=== PATIENT | female | born 1985 | race African-American/Black ===

== ENCOUNTER 2018-12-11 02:01 | Emergency (ER) | payer OTHER ==
[~2018-12-11] VITALS: Ht 149.9 cm; Wt 53.5 kg
--- NOTE | 2018-12-11 02:10 | NUR ---
Pt brought to ED via [facility] requesting a medical clearance for placement in group home. Pt reports last THC along time ago and drank 3 shots tonight but rarely drinks. Pt c/o some lower abd pain.
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
[2018-12-11 03:15] LABS: HCG,QUALITATIVE URINE NEGATIVE (NEGATIVE)
[2018-12-11 03:18] LABS: AMPHETAMINE SCREEN, URINE NEGATIVE (NEGATIVE); BARBITURATE SCREEN URINE NEGATIVE (NEGATIVE); BENZODIAZEPINES SCREEN URINE NEGATIVE (NEGATIVE); CANNABINOID SCREEN, URINE POSITIVE (NEGATIVE); CLARITY,URINE CLEAR; COCAINE SCREEN URINE NEGATIVE (NEGATIVE); COLOR,URINE YELLOW; METHADONE STAT NEGATIVE (NEGATIVE); METHAMPHETAMINE SCREEN URINE S NEGATIVE (NEGATIVE); OPIATE SCREEN URINE NEGATIVE (NEGATIVE); OXYCODONE STAT NEGATIVE (NEGATIVE); PROPOXYPHENE STAT NEGATIVE (NEGATIVE); TRICYCLIC ANTIDEPRESSANTS SCRE NEGATIVE (NEGATIVE)
[2018-12-11 03:19] LABS: BACTERIA,URINE FEW /HPF; BILIRUBIN,URINE NEGATIVE (NEGATIVE); GLUCOSE, URINE (UA) NEGATIVE (NEGATIVE); KETONES,URINE NEGATIVE (NEGATIVE); LEUKOCYTE ESTERASE ,URINE 1+ (NEGATIVE); NITRITE,URINE NEGATIVE (NEGATIVE); PROTEIN,URINE 1+ (NEGATIVE); UROBILINOGEN,URINE 0.2 MG/DL (NORMAL)
[2018-12-11 03:21] LABS: ALANINE AMINOTRANSFERASE 21 U/L (0-55); ALBUMIN 4.8 GM/DL (3.2-4.5); ALKALINE PHOSPHATASE 84 U/L (40-136); BILIRUBIN,TOTAL 0.2 MG/DL (0.1-1.0); BUN/CREATININE RATIO 13; CALCIUM 9.2 MG/DL (8.5-10.1); CARBON DIOXIDE 21 MMOL/L (21-32); CHLORIDE 103 MMOL/L (98-107); CREATININE SERUM 0.78 MG/DL (0.60-1.30); GFR ESTIMATED > 60; GLUCOSE 94 MG/DL (70-105); POTASSIUM 3.6 MMOL/L (3.6-5.0); SODIUM 142 MMOL/L (135-145); TOTAL PROTEIN 7.7 GM/DL (6.4-8.2)
[2018-12-11 03:23] LABS: HEMATOCRIT 46 % (35-52); HEMOGLOBIN 15.6 G/DL (11.5-16.0); LYMPHOCYTES % (AUTO) 21 % (12-44); MEAN CORPUSCULAR HEMOGLOBIN 31 PG (25-34); MEAN CORPUSCULAR HGB CONC 34 G/DL (32-36); MEAN CORPUSCULAR VOLUME 93 FL (80-99); MEAN PLATELET VOLUME 12.1 FL (7.4-10.4); NEUTROPHILS % (AUTO) 75 % (42-75); PLATELET COUNT 173 10^3/uL (130-400); RED CELL DISTRIBUTION WIDTH 12.8 % (10.0-14.5); WHITE BLOOD COUNT 14.3 10^3/uL (4.3-11.0)
[2018-12-11 03:24] LABS: BAND NEUTROPHILS 6 %; BASOPHILS # (AUTO) 0.1 10^3/uL (0.0-0.1); BASOPHILS % (AUTO) 0 % (0-10); BASOPHILS % (MANUAL) 0 %; EOSINOPHILS % (AUTO) 0 % (0-10); EOSINOPHILS % (MANUAL) 1 %; LYMPHOCYTES % (MANUAL) 18 %; MONOCYTES # (AUTO) 0.5 X 10^3 (0.0-1.0); MONOCYTES % (AUTO) 4 % (0-12); MONOCYTES % (MANUAL) 4 %; NEUTROPHILS # (AUTO) 10.6 X 10^3 (1.8-7.8); NEUTROPHILS % (MANUAL) 71 %
[2018-12-11 03:25] LABS: RBC MORPH NORMAL
[2018-12-11] MEDS ORDERED: KETOROLAC 30 MG/ML VIAL IVP ONE (03:45)
[2018-12-11] MEDS ORDERED: CATHETER FLUSH 10 ML SYR IV PRN (03:45)
[2018-12-11] MEDS ORDERED: NS 100 ML (IVPB) BAG IV ONE (03:45)
[2018-12-11] MEDS ORDERED: IOHEXOL 350 MG/ML 100 ML (OMNIPAQUE 350) VIAL IV ONE (03:45)
[2018-12-11] MEDS ORDERED: HOLD METFORMIN - RECEIVED CONTRAST 20 ML VIAL IV SCH (03:45)
--- NOTE | 2018-12-11 03:52 | NUR ---
20 ga SL placed to [facility] to prepare for CT scan.
[2018-12-11] MEDS ORDERED: CEFU250T80 PO (04:58)
[2018-12-11] MEDS ORDERED: CEFDINIR 300 MG (OMNICEF) CAP PO ONE (05:00)
[2018-12-11 05:04] VITALS: BP 121/70
--- NOTE | 2018-12-11 05:04 | NUR ---
Pt released in custody of [facility].
--- NOTE | 2018-12-11 06:37 | Diagnostic Imaging Report ---
PROCEDURE: CT abdomen and pelvis with contrast. TECHNIQUE: Multiple contiguous axial images were obtained through the chest, abdomen and pelvis after administration of intravenous contrast. Auto Exposure Controls were utilized during the CT exam to meet ALARA standards for radiation dose reduction. INDICATION: Pelvic and abdominal pain. CORRELATION STUDY: None FINDINGS: CT CHEST: Heart size normal. Thoracic aorta unremarkable. Calcified granulomas within the mediastinum are present. The lung marley are clear. No infiltrate. Calcified granuloma anterior aspect right upper lobe. No pleural effusion or pneumothorax. CT ABDOMEN and PELVIS: Likely small amount of fatty infiltration along the falciform ligament of the liver. Liver otherwise unremarkable. Gallbladder, spleen, pancreas and adrenal glands are unremarkable. Abdominal aorta normal in contour. Gastrointestinal tract demonstrates no obstruction or inflammation. Mild severity fecal retention. No findings to suggest appendicitis. No free air. In the pelvis, approximately 4.4 cm right adnexal cystic mass is present. Trace amount of pelvic fluid. Uterus and left adnexa unremarkable. Urinary bladder unremarkable. There is incidental note made of a likely mixing contrast and blood within the venous system of the pelvis and low IVC. Visualized osseous structures are unremarkable. IMPRESSION: CT CHEST: 1. Negative for acute abnormality of the chest. CT ABDOMEN and PELVIS: 1. Right adnexal cyst may be physiologic; this fairly prominent. If further assessment is desired, consideration for pelvic ultrasound imaging would be recommended. A preliminary report was provided by [employer]. Dictated by: Dictated on workstation # [id number]
== END 2018-12-11 05:04 ==
LOC: ER FS 02:04
DX: N39.0 Urinary tract infection, site not specified (principal); N83.201 Unspecified ovarian cyst, right side; F12.10 Cannabis abuse, uncomplicated; F17.210 Nicotine dependence, cigarettes, uncomplicated
CPT/HCPCS: 36415; 74177; 80053; 80306; 80320; 81000; 84703; 85007; 85027; 87077; 87088; 87491; 87591

== ENCOUNTER 2019-03-30 00:12 | Emergency (ER) | payer SELFPAY ==
[~2019-03-30] VITALS: Ht 149.9 cm; Wt 53.5 kg
[~2019-03-30 00:12] MED LIST: CEFU250T80 PO
[2019-03-30] MEDS ORDERED: LACTATED RINGERS 1,000 ML IV ONE (00:14)
[2019-03-30] MEDS ORDERED: SUCCINYLCHOLINE INJ 100 MG/5 ML SYR INJ ONE ×2 (00:16→02:00)
[2019-03-30] MEDS ORDERED: MIDAZOLAM 5 MG/5 ML (VERSED) VIAL IJ ONE (00:16)
[2019-03-30] MEDS ORDERED: ROCURONIUM 10 MG/ML 5 ML SYRINGE IV ONE ×2 (00:16→02:00)
[2019-03-30] MEDS ORDERED: TETANUS,DIPTH,PERTUSS P/F (BOOSTRIX) 0.5 ML VIAL IM ONE (00:30)
[2019-03-30 00:32] LABS: BASOPHILS # (AUTO) 0.1 10^3/uL (0.0-0.1); BASOPHILS % (AUTO) 0 % (0-10); EOSINOPHILS # (AUTO) 0.1 10^3/uL (0.0-0.3); EOSINOPHILS % (AUTO) 1 % (0-10); HEMATOCRIT 45 % (35-52); HEMOGLOBIN 15.5 G/DL (11.5-16.0); LYMPHOCYTES # (AUTO) 3.8 X 10^3 (1.0-4.0); LYMPHOCYTES % (AUTO) 27 % (12-44); MEAN CORPUSCULAR HEMOGLOBIN 31 PG (25-34); MEAN CORPUSCULAR HGB CONC 35 G/DL (32-36); MEAN CORPUSCULAR VOLUME 91 FL (80-99); MEAN PLATELET VOLUME 11.9 FL (7.4-10.4); MONOCYTES # (AUTO) 0.7 X 10^3 (0.0-1.0); MONOCYTES % (AUTO) 5 % (0-12); NEUTROPHILS # (AUTO) 9.3 X 10^3 (1.8-7.8); NEUTROPHILS % (AUTO) 66 % (42-75); PLATELET COUNT 176 10^3/uL (130-400); RED CELL DISTRIBUTION WIDTH 13.7 % (10.0-14.5)
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
[2019-03-30 01:01] LABS: ALANINE AMINOTRANSFERASE 20 U/L (0-55); ALBUMIN 4.5 GM/DL (3.2-4.5); ALKALINE PHOSPHATASE 68 U/L (40-136); AMYLASE 150 U/L (25-125); BILIRUBIN,TOTAL 0.3 MG/DL (0.1-1.0); BUN/CREATININE RATIO 18; CALCIUM 8.7 MG/DL (8.5-10.1); CARBON DIOXIDE 14 MMOL/L (21-32); CHLORIDE 115 MMOL/L (98-107); CREATINE KINASE 265 U/L (29-168); GFR ESTIMATED > 60; GLUCOSE 87 MG/DL (70-105); LIPASE 414 U/L (8-78); MAGNESIUM 2.2 MG/DL (1.6-2.4); POTASSIUM 3.9 MMOL/L (3.6-5.0); SODIUM 147 MMOL/L (135-145); TOTAL PROTEIN 7.5 GM/DL (6.4-8.2)
[2019-03-30 01:08] LABS: CREATINE KINASE MB 2.9 NG/ML (<6.6)
[2019-03-30] MEDS ORDERED: HOLD METFORMIN - RECEIVED CONTRAST 20 ML VIAL IV SCH (01:15)
[2019-03-30] MEDS ORDERED: IOHEXOL 350 MG/ML 100 ML (OMNIPAQUE 350) VIAL IV ONE (01:15)
[2019-03-30] MEDS ORDERED: NS 100 ML (IVPB) BAG IV ONE (01:15)
[2019-03-30] MEDS ORDERED: NS IV 1000 ML 1,000 ML IV ONE (01:20)
[2019-03-30 01:21] LABS: ACETAMINOPHEN < 10 UG/ML (10-30)
[2019-03-30 01:22] LABS: BILIRUBIN,URINE NEGATIVE (NEGATIVE); CLARITY,URINE CLEAR; COLOR,URINE YELLOW; GLUCOSE, URINE (UA) NEGATIVE (NEGATIVE); KETONES,URINE NEGATIVE (NEGATIVE); LEUKOCYTE ESTERASE ,URINE NEGATIVE (NEGATIVE); NITRITE,URINE NEGATIVE (NEGATIVE); PROTEIN,URINE NEGATIVE (NEGATIVE)
--- NOTE | 2019-03-30 01:22 | Anesthesia-Procedure Note ---
Procedures/Interventions Procedure Start/Stop/Diagnosis Date of Procedure: Mar 30, 2019 Start Time: 00:45 Referring Physician: Charan Preprocedural Diagnosis: unresponsive/head trauma Brief History See ER provider notes for history. Called to ER to intubate patient after head trauma. Upon patients arrival back to ER room, monitors on and functional. C- collar in place. Versed 2MG IV given for placement on NGT prior to intubation due to unknown NPO status and to reduce risk of aspiration. PPV via ambu bag w ith 15L O2. Succinylcholine 80mg IV given. One attempt with poor view by SRNA. One attempt by AGUSTIN, 7.5 ETT placed with ease. +ETCO2. BBS. Report to ER staff. Pt in stable condition upon our exit. Stop Time: 01:08 Intubation RSI: Yes 100% pre-Ox, [id number]: Yes Intubation Method: orotracheal Videoscope used: Yes (mccgrath x ) Grade View: 1 Medications: Succinylcholine (80), Versed (2) Mask Ventilation: positive Positive End Tide CO2: Yes Breath Sounds after Intubation: bilateral-equal ETT Securred @ (cm): 20 Intubated with ease: Yes Intubation Complications: no complications AISLINN WOOD CRNA Mar 30, 2019 01:22 POS
[2019-03-30 01:33] LABS: AMPHETAMINE SCREEN, URINE NEGATIVE (NEGATIVE); BACTERIA,URINE TRACE /HPF; BARBITURATE SCREEN URINE NEGATIVE (NEGATIVE); BENZODIAZEPINES SCREEN URINE NEGATIVE (NEGATIVE); CANNABINOID SCREEN, URINE NEGATIVE (NEGATIVE); COCAINE SCREEN URINE NEGATIVE (NEGATIVE); METHADONE STAT NEGATIVE (NEGATIVE); METHAMPHETAMINE SCREEN URINE S NEGATIVE (NEGATIVE); OPIATE SCREEN URINE NEGATIVE (NEGATIVE); OXYCODONE STAT NEGATIVE (NEGATIVE); PROPOXYPHENE STAT NEGATIVE (NEGATIVE); SQUAMOUS EPITHELIAL CELL,UR RARE /HPF; TRICYCLIC ANTIDEPRESSANTS SCRE NEGATIVE (NEGATIVE)
[2019-03-30 01:50] LABS: ABG BASE EXCESS -8.2 MMOL/L (-2.5-2.5); ABG OXYGEN SATURATION 98 % (94-100); ABG PCO2 39 MMHG (35-45); ABG PO2 116 MMHG (79-93)
[2019-03-30 01:52] LABS: ALLENS TEST POSITIVE; INSPIRED O2 25%; PATIENT TEMP 35.3; VENTILATOR NO
[2019-03-30 01:58] LABS: ABG PH 7.27 (7.37-7.43)
[2019-03-30] MEDS ORDERED: MIDAZOLAM 5 MG/5 ML (VERSED) VIAL IVP ONE (02:00)
[2019-03-30] MEDS ORDERED: MIDAZOLAM 2 MG/2 ML (VERSED) VIAL IVP ONE (02:00)
[2019-03-30 02:06] VITALS: BP 118/102
[2019-03-30 02:07] LABS: INR 1.2 (0.8-1.4); PROTHROMBIN TIME PATIENT 15.8 SEC (12.2-14.7)
[2019-03-30] MEDS ORDERED: PROPOFOL INJECTION 50 ML IV SCH (02:15)
[2019-03-30] MEDS ORDERED: PROPOFOL DRIP (ICU) 100 ML IV ONE (02:16)
[2019-03-30] MEDS ORDERED: SODIUM BICARB 8.4% 50 MEQ/50 ML VIAL IV ONE (02:30)
[2019-03-30] MEDS ORDERED: SODIUM BICARB 8.4% 50 MEQ/50 ML VIAL ONE (02:32)
[2019-03-30 03:25] VITALS: BP 132/91
--- NOTE | 2019-03-30 06:14 | Diagnostic Imaging Report ---
PROCEDURE: CT thoracic and lumbar spine without contrast. TECHNIQUE: Multiple contiguous axial images were obtained through the thoracic and lumbar spine without the use of intravenous contrast. Sagittal and coronal reformations were then performed. Indication: Back pain, unresponsive patient, EtOH. Comparison: None. Discussion: No acute fracture, subluxation, or other osseous abnormality identified. No significant degenerative disease. Alignment is anatomic. Soft tissues are unremarkable. Impression: 1. Negative CT of the thoracic and lumbar spine. 2. Agree with preliminary report. Dictated by: Dictated on workstation # [id number]
--- NOTE | 2019-03-30 06:34 | Diagnostic Imaging Report ---
PROCEDURE: CT head, face, and cervical spine without contrast. TECHNIQUE: Multiple contiguous axial images were obtained through the head, neck, and facial bones without the use of intravenous contrast. Sagittal and coronal reformations through the cervical spine and facial bones were also performed. Auto Exposure Controls were utilized during the CT exam to meet ALARA standards for radiation dose reduction. Indication: Head, neck, and facial pain, forehead hematoma, EtOH, unresponsive. Comparison: None. Discussion: No acute intracranial hemorrhage, mass, midline shift, or hydrocephalus. The ventricles and sulci are normal of size and configuration for age. Mild soft tissue swelling with punctate gas within the right forehead, likely due to a laceration. No radiopaque foreign body identified. The orbits appear symmetrical. Trace mucosal thickening within the maxillary sinuses. No air-fluid level identified. The mastoid air cells are well-aerated. No calvarial or facial bone fracture identified. Nasal bones are intact. No dislocation of either temporal mandibular joint. Within the cervical spine, no fracture or subluxation. The intervertebral disc spaces and facet joints are well-maintained. Alignment is anatomic. Soft tissues are unremarkable. Impression: 1. Right forehead soft tissue injury/laceration. No fracture. 2. No acute intracranial abnormality identified. 3. Negative cervical spine CT. 4. Agree with preliminary report. Dictated by: Dictated on workstation # [id number]
--- NOTE | 2019-03-30 06:50 | Diagnostic Imaging Report ---
Indication: Dyspnea, unresponsive, EtOH. Comparison: None. Discussion: Single portable supine view of the chest was obtained. Mildly elevated right hemidiaphragm. Normal heart size. No focal consolidation, pleural fluid, or pneumothorax. No osseous abnormality. Impression: 1. Negative portable chest. Dictated by: Dictated on workstation # [id number]
--- NOTE | 2019-03-30 06:55 | Diagnostic Imaging Report ---
PROCEDURE: CT chest, abdomen, and pelvis with contrast. TECHNIQUE: Multiple contiguous axial images were obtained through the chest, abdomen, and pelvis after the administration of intravenous contrast. Auto Exposure Controls were utilized during the CT exam to meet ALARA standards for radiation dose reduction. INDICATION: Chest and abdominal pain, found unresponsive, EtOH. COMPARISON: CT of abdomen and pelvis 12/11/2018. DISCUSSION: CHEST: Dependent atelectasis is noted within the lung bases. No focal consolidation identified. No suspicious pulmonary lesion. Normal heart size. No pleural or pericardial fluid. No pathologically enlarged lymph nodes are identified. The thoracic aorta is normal in caliber and configuration. Abdomen/pelvis: The liver, gallbladder, stomach, pancreas, spleen, and adrenal glands are unremarkable. No renal stone or hydronephrosis. The urinary bladder is markedly distended. Uterus is unremarkable. Previous right adnexal cystic lesion has resolved. No obstruction, pneumatosis, or pneumoperitoneum. No ascites or pathologically enlarged lymph nodes are identified. No acute osseous abnormality identified. IMPRESSION: 1. Distended urinary bladder. Otherwise no acute abnormality identified within the chest, abdomen, or pelvis. 2. Agree with preliminary report. Dictated by: Dictated on workstation # [id number]
--- NOTE | 2019-03-30 07:05 | Diagnostic Imaging Report ---
INDICATION: Line placement. FINDINGS: Endotracheal tube appears appropriately positioned. Enteric tube extends to the stomach. There is mild elevation of the right hemidiaphragm with some increasing discoid atelectasis at the right base. Left lung clear. No pneumothorax evident. No fractures are evident. IMPRESSION: 1. Endotracheal tube positioning and enteric tube positioning appear appropriate. 2. Right hemidiaphragm elevation with developing right basilar atelectasis. No pleural collection or pneumothorax evident. 3. No fractures evident. Dictated by: Dictated on workstation # [id number]
--- NOTE | 2019-03-30 07:24 | Diagnostic Imaging Report ---
INDICATION: Injury FINDINGS: AP pelvic radiograph showed no fracture or joint disruption. There is some residual contrast within the urinary bladder as well as opacifying the distal ureters. IMPRESSION: No acute appearing abnormality Dictated by: Dictated on workstation # [id number]
== END 2019-03-30 03:40 | disposition short-term general hospital (02) ==
LOC: EDUNIT# 00:12 → ER 00:15
DX: S09.90XA Unspecified injury of head, initial encounter (principal); S01.81XA Laceration without foreign body of other part of head, initial encounter; R68.0 Hypothermia, not associated with low environmental temperature; E87.2 Acidosis; F10.129 Alcohol abuse with intoxication, unspecified; K85.90 Acute pancreatitis without necrosis or infection, unspecified; F17.210 Nicotine dependence, cigarettes, uncomplicated; Z23 Encounter for immunization; X58.XXXA Exposure to other specified factors, initial encounter
CPT/HCPCS: 31500; 36415; 51702; 70450; 70486; 71045; 71260; 72125; 72128; 72131; 72170; 74177; 80053; 80306; 80320; 80329; 81000; 82150; 82550; 82553; 82805; 83690; 83735; 83874; 84703; 85025; 85610; 85730; 86850; 86900; 86901; 87070; 87205; 90715; 93005; 93041; 99291; 99292